=== PATIENT | female | born 1985 | race Caucasian/White ===

== ENCOUNTER 2024-08-24 11:46 | Emergency (ER) | payer MEDICAID, OTHER ==
[~2024-08-24] VITALS: Ht 152.4 cm; Wt 61.2 kg
[2024-08-24] MEDS: ACETAMINOPHEN 500 MG TABLET PO ONE (12:38)
[2024-08-24] MEDS: IBUPROFEN 200 MG TABLET PO ONE (12:38)
[2024-08-24 13:12] VITALS: O2SAT 96
== END 2024-08-24 13:21 | disposition home or self-care (01) ==
LOC: ER 11:46
DX: S50.11XA Contusion of right forearm, initial encounter (principal); S90.31XA Contusion of right foot, initial encounter; E11.9 Type 2 diabetes mellitus without complications; V43.62XA Car passenger injured in collision with other type car in traffic accident, initial encounter; Y93.89 Activity, other specified; Y92.410 Unspecified street and highway as the place of occurrence of the external cause; Y99.8 Other external cause status
CPT/HCPCS: 71045; A4606; A4663

== ENCOUNTER 2025-05-03 16:50 | Emergency (ER) | payer OTHER ==
[~2025-05-03] VITALS: Ht 152.4 cm; Wt 65.8 kg
[2025-05-03] MEDS ORDERED: [UNRECOGNIZED DRUG - CODE] MC (17:31)
[2025-05-03 17:39] VITALS: BP 129/74; O2SAT 99
== END 2025-05-03 17:40 | disposition home or self-care (01) ==
LOC: ER 16:58
DX: E11.9 Type 2 diabetes mellitus without complications (principal); Z76.0 Encounter for issue of repeat prescription; Z79.4 Long term (current) use of insulin; Z96.41 Presence of insulin pump (external) (internal)
CPT/HCPCS: A4606; A4663